=== PATIENT | male | born 1940 | race Caucasian/White ===

== ENCOUNTER 2017-12-09 22:17 | Emergency (ER) ==
[2017-12-09] MEDS ORDERED: TENIVAC IM ONE (22:35)
[2017-12-09 22:47] VITALS: BP 152/80; TEMP 97.9; BMI 29.2
--- NOTE | 2017-12-10 00:40 | CT ---
EXAM: CT brain without contrast HISTORY: Head trauma TECHNIQUE: CT of the brain without intravenous contrast FINDINGS: There is no acute hemorrhage midline shift or mass effect. No hydrocephalus or abnormal e xtra-axial fluid collection. No significant parenchymal attenuation abnormality. The bony cranium a ppears normal. The visualized paranasal sinuses are clear. Soft tissues without significant abnormali ty. IMPRESSION: 1. CT of the brain within normal limits.
--- NOTE | 2017-12-10 00:43 | CT ---
CT cervical spine without contrast HISTORY: Trauma and pain TECHNIQUE: CT of the cervical spine with multiplanar reformations. FINDINGS: Reformatted images demonstrate normal alignment with preservation of vertebral body height . Ankylosis of C2-C3. Multilevel anterior endplate spondylosis. Mild multilevel posterior disc oste ophyte. No fracture seen on the axial or reformatted images. No acute surrounding soft tissue abnorm alitites. Lung apices are clear. IMPRESSION: No acute findings in the cervical spine.
--- NOTE | 2017-12-10 00:48 | CT ---
EXAM: CT maxillofacial without contrast. HISTORY: Trauma. PROCEDURE: Contiguous axial CT images of the face and orbits without contrast with coronal and sagit narinder reformats. FINDINGS: The bones are intact with no evidence of fracture.. The temporomandibular joints are main tained. The orbits are normal in appearance. The globes are intact and symmetric. There is minimal mucosal thickening in the sphenoid sinus. Impression: No evidence of fracture. Sphenoid sinusitis.
--- NOTE | 2017-12-10 00:53 | ED.PDOC ---
General ED Provider: Dr. DASIA LAROSE-ER Chief Complaint: Facial Injury Stated Complaint: struck by a pipe at home Time Seen by Physician: 22:20 Mode of Arrival: Walk-In Information Source: Patient, Family Exam Limitations: No limitations Nursing and Triage Documentation Reviewed and Agree: Yes Does patient meet sepsis criteria?: No System Inflammatory Response Syndrome: Not Applicable Sepsis Protocol: For patient's 13 years and over: Temp is 96.8 and below OR 101 and greater Pulse >90 BPM Resp >20/minute Acutely Altered Mental Status Are patient's symptoms suggestive of a new infection, such as: -Pneumonia -Skin, Soft Tissue -Endocarditis -UTI -Bone, Joint Infection -Implantable Device -Acute Abdominal Infection -Wound Infection -Meningitis -Blood Stream Catheter Infection -Unknown Skin Complaint Exam - Skin/Soft Tissue Complaint/Exam Onset/Duration: 3 0 min Symptoms Are: Still present Timing: Constant Initial Severity: Mild Current Severity: Mild Location: right tace Character: Reports: Swelling, Painful Aggravating: Reports: None Alleviating: Reports: None Associated Signs and Symptoms: Reports: Bruising, Tenderness Related History: Reports: Recent trauma Related Surgical History: Reports: None Recent Exposure to Others w/Similar Symptoms: No Skin Findings: Present: Other Joint Tenderness Present: No Differential Diagnoses: Other Review of Systems - Review Of Systems Constitutional: Reports: No symptoms Eyes: Reports: No symptoms Ears, Nose, Mouth, Throat: Reports: No symptoms Respiratory: Reports: No symptoms Cardiac: Reports: No symptoms GI: Reports: No symptoms : Reports: No symptoms Musculoskeletal: Reports: No symptoms Skin: Reports: No symptoms Neurological: Reports: Headache Endocrine: Reports: No symptoms Hematologic/Lymphatic: Reports: No symptoms All Other Systems: Reviewed and Negative Past Medical History - Past Medical History Previously Healthy: Yes Endocrine: Reports: Unknown Cardiovascular: Reports: Unknown Respiratory: Reports: Unknown Hematological: Reports: Unknown Gastrointestinal: Reports: Unknown Genitourinary: Reports: Unknown Neuro/Psych: Reports: Unknown Musculoskeletal: Reports: Unknown Cancer: Reports: Unknown - Surgical History General Surgical History: Reports: Unknown - Family History Family History: Reports: Unknown - Social History Smoking Status: Never smoker Hx Substance Use: No Alcohol Screening: Occasionally - Immunizations Tetanus Shot up to Date: No Physical Exam - Physical Exam Appearance: Well-appearing, No pain distress, Well-nourished Pain Distress: Mild Eyes: TROY, EOMI, Conjunctiva clear ENT: Ears normal, Nose normal, Oropharynx normal Neck: Supple Respiratory: Airway patent, Breath sounds clear, Breath sounds equal, Respirations nonlabored Cardiovascular: RRR, Pulses normal, No rub, No murmur GI/: Soft, Nontender, No masses, Bowel sounds normal, No Organomegaly Musculoskeletal: Normal strength, ROM intact, No edema, No calf tenderness Skin: Warm (notes abrasion across forehead) Neurological: Sensation intact, Motor intact, Reflexes intact, Cranial nerves intact, Alert, Oriented Psychiatric: Affect appropriate, Mood appropriate Interpretation - Radiology Interpretation Radiology Interpretation By: Radiologist Radiology Results: Negative Exam Interpreted: CT Scan Critical Care Note - Critical Care Note Total Time (mins): 0 Course - Course Orders, Labs, Meds: Orders Category Date Time Status Wound care [ED WOUND CARE] .ONCE EMERGENCY 12/09/17 22:35 Active Tetanus and Diphtheria Tox/Pf [Tenivac] MEDS 12/09/17 22:35 Discontinued 0.5 ml IM .ONCE ONE CT CERVICAL SPINE W/O CONTRAST Stat RADS 12/09/17 22:[address] HEAD W/O CONTRAST Stat RADS 12/09/17 22:[address] MAXILLOFACIAL W/O CONTRAST Stat RADS 12/09/17 22:35 Completed Medications Discontinued Medications Generic Name Dose Route Start Last Admin Trade Name Freq PRN Reason Stop Dose Admin Tetanus/Diphtheria Toxoids Adsorbed 0.5 ml 12/09/17 22:35 12/09/17 22:54 Tenivac IM 12/09/17 22:36 0.5 ml .ONCE ONE Administration Vital Signs: Temp Pulse Resp BP Pulse Ox 12/09/17 22:19 97.9 F 75 20 152/80 H 95 Departure - Departure Time of Disposition: 00:52 Disposition: HOME SELF-CARE Discharge Problem: Trauma Instructions: Facial Contusion (ED) Condition: Good Pt referred to PMD for follow-up: Yes IPMP verified?: No Additional Instructions: keep clean and dry ----return rpn Allergies/Adverse Reactions: Allergies No Known Allergies Allergy (Unverified 12/09/17 22:27) Home Medications: Ambulatory Orders Allopurinol 300 mg PO DAILY 12/09/17 Atorvastatin Calcium [Lipitor] 80 mg PO DAILY 12/09/17 Disposition Discussed With: Patient, Family
== END 2017-12-10 00:56 | disposition home or self-care (01) ==
LOC: ED 22:17
DX: S00.81XA Abrasion of other part of head, initial encounter (principal); S00.83XA Contusion of other part of head, initial encounter; W22.8XXA Striking against or struck by other objects, initial encounter
CPT/HCPCS: 90471; 90714; 99283